=== PATIENT | male | born 1960 | race Hispanic/Latino ===

== ENCOUNTER → 2025-07-18 | Outpatient (CLI) | payer OTHER ==
--- NOTE | 2025-07-18 14:56 | HMCIMG ---
Right knee radiographs, frontal, lateral, oblique, and skyline views . CLINICAL INDICATION: Pain following trauma. FINDINGS: There is no evidence of fracture or dislocation. No destructive bony lesions are identified. There is severe tricompartmental osteoarthropathy with narrowing and osteophytes. There are loose bodies seen mostly in the posterior aspect of the right knee joint. Surrounding soft tissues are within normal limits. There is atherosclerotic change of the popliteal artery and trifurcation vessels with calcified plaque. IMPRESSION 1. Severe tricompartmental osteoarthropathy with narrowing and loose bodies 2. 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 No acute fracture or dislocation
== END | disposition home or self-care (01) ==
LOC: RAH 13:19
PROVIDERS: ATTEND Internal Medicine
DX: M17.11 Unilateral primary osteoarthritis, right knee (principal); M25.761 Osteophyte, right knee; I70.208 Unspecified atherosclerosis of native arteries of extremities, other extremity; M79.89 Other specified soft tissue disorders
CPT/HCPCS: 76882